=== PATIENT | female | born 1990 | race Caucasian/White ===

== ENCOUNTER 2017-11-12 13:42 | Emergency (ER) | payer OTHER ==
[~2017-11-12] VITALS: Ht 160 cm; Wt 61.8 kg
[~2017-11-12 13:42] MED LIST: ADDERALL20 MG PO; ADDERALL30 MG PO; AMOXICILLIN 50500 MG PO; GLUCOPHAGE PO; METOPROLOL TART25 MG PO; NAPROSYN375 MG PO; NIFEREX PO; NO HOME MEDICATIONS; NORCO 325 MG-51 TAB PO; PERCOCET 325 MG1 TA2 PO; PRENATAL1 TA1 PO; TOPROL XL 25MG25 MG PO; VALTREX500 MG PO; [UNRECOGNIZED DRUG - OTHER] PO
[2017-11-12 13:46] VITALS: BP 126/79; TEMP 98.1
[2017-11-12] MEDS ORDERED: XANAX .25M0.25 MG/TA PO (13:56)
[2017-11-12] MEDS ORDERED: PROVERA 10MG10 MG PO (13:59)
[2017-11-12 14:37] LABS: BASO # 0.1 (0.0-0.2); BASO % 0.6 % (0.0-2.0); EOS # 0.5 (0.0-0.7); EOS % 6.1 % (0-4.0); GRAN # 5.5 (1.4-6.5); GRAN % 67.8 % (42.2-75.2); HEMATOCRIT 39.5 % (37.0-47.0); LYMPH # 1.4 (1.2-3.4); LYMPH % 17.9 % (20.0-51.0); MEAN CELL VOLUME 94 fl (80.0-100.0); MEAN CORPUSCULAR HEMOGLOBIN 31 pg (27.0-31.0); MEAN CORPUSCULAR HGB CONC 33 g/dl (33.0-37.0); MEAN PLATELET VOLUME 10.6 fl (7.4-10.4); MONO # 0.6 (0.1-0.6); MONO % 7.1 % (1.7-9.3); PLATELET COUNT 268 K/mm3 (130-400); RED BLOOD COUNT 4.19 M/mm3 (4.10-5.30); REDCELL DISTRIBUTION WIDTH-CV 12.4 % (11.5-14.5)
[2017-11-12 15:02] LABS: BILIRUBIN,TOTAL 0.4 mg/dL (0.0-1.0); CALCIUM 9.2 mg/dL (8.4-10.2); CREATININE, serum 0.66 mg/dL (0.52-1.25); POTASSIUM 3.7 mmol/L (3.4-5.0); TOTAL PROTEIN 6.9 gm/dL (6.4-8.2)
[2017-11-12 16:15] VITALS: PULSE 82
== END 2017-11-12 16:16 | disposition home or self-care (01) ==
LOC: COL.ER 13:42
PROVIDERS: Nurse Practitioner
DX: N93.8 Other specified abnormal uterine and vaginal bleeding (principal); F17.210 Nicotine dependence, cigarettes, uncomplicated; F90.9 Attention-deficit hyperactivity disorder, unspecified type; Z88.2 Allergy status to sulfonamides; Z90.49 Acquired absence of other specified parts of digestive tract